=== PATIENT | female | born 2005 | race Hispanic/Latino ===

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

== ENCOUNTER 2024-01-24 18:00 | Emergency (ER) | payer OTHER ==
[~2024-01-24] VITALS: Ht 162.6 cm; Wt 68.0 kg
[~2024-01-24 18:00] MED LIST changes: +PRED10TA3 PO
[2024-01-24] MEDS ORDERED: AMOX875T2 PO (21:35)
[2024-01-24 21:51] VITALS: BP 131/47; PULSE 55; RESP 18; O2SAT 100
== END 2024-01-24 21:52 | disposition home or self-care (01) ==
LOC: EDH 18:00
DX: H61.23 Impacted cerumen, bilateral (principal); Z79.899 Other long term (current) drug therapy; Z98.890 Other specified postprocedural states
CPT/HCPCS: 69209

== ENCOUNTER 2024-02-18 21:16 | Emergency (ER) | payer OTHER ==
[~2024-02-18] VITALS: Ht 165.1 cm; Wt 68.9 kg
[~2024-02-18 21:16] MED LIST changes: +AMOX875T2 PO
[2024-02-18 21:56] VITALS: BP 131/78; PULSE 71; RESP 20; TEMP 98.8; O2SAT 98
[2024-02-18] MEDS ORDERED: KETO10TA2 PO (22:30)
== END 2024-02-18 22:53 | disposition home or self-care (01) ==
LOC: EDH 21:16
DX: S86.912A Strain of unspecified muscle(s) and tendon(s) at lower leg level, left leg, initial encounter (principal); Z79.899 Other long term (current) drug therapy; X50.1XXA Overexertion from prolonged static or awkward postures, initial encounter; Y93.66 Activity, soccer; Y92.89 Other specified places as the place of occurrence of the external cause; Y99.8 Other external cause status
CPT/HCPCS: 29505; 73564